=== PATIENT | male | born 1945 | race Caucasian/White ===

== ENCOUNTER 2016-12-03 11:43 | Emergency (ER) | payer MEDICARE, OTHER ==
[2015-11-19 19:10] VITALS: BMI 26.6
[~2016-12-03 11:43] MED LIST: ALEVE220 MG PO; BAYER CHEWABLE81 MG PO; ELIQUIS2.5 MG PO; FLOMAX0.4 MG PO; HYDROCODONE-APA1 TAB PO; PROSCAR5 MG PO; XOPENEX HFA15 GM INH
[2016-12-03 13:47] LABS: BASOPHILS 0.3 % (0-2); EOSINOPHILS 0.5 % (0-7); HEMATOCRIT 44.9 % (42.0-54.0); HEMOGLOBIN 15.8 g/dL (13.5-17.5); IMMATURE GRANULOCYTES 0.4 % (0-5); LYMPHOCYTES 21.6 % (15-50); MCH 34.2 pg (26.0-34.0); MCHC 35.2 g/dL (31.0-37.0); MCV 97.2 fL (80.0-100.0); MEAN PLATELET VOLUME 8.4 fL (7.4-10.4); NEUTROPHILS 70.2 % (40-80); PLATELET COUNT 279 10x3/uL (130-400); RBC 4.62 10x6/uL (4.20-6.10); RDW 12.1 % (11.5-14.5)
== END 2016-12-03 14:15 | disposition home or self-care (01) ==
LOC: D.ER 11:43
PROVIDERS: Emergency Medicine
DX: S01.01XA Laceration without foreign body of scalp, initial encounter (principal); W01.0XXA Fall on same level from slipping, tripping and stumbling without subsequent striking against object, initial encounter; Y93.89 Activity, other specified; Y92.89 Other specified places as the place of occurrence of the external cause

== ENCOUNTER 2017-06-25 22:07 | Inpatient (IN) | payer MEDICARE, OTHER ==
[~2017-06-25] VITALS: Ht 175.3 cm; Wt 81.6 kg
--- NOTE | ~2017-06-25 | OP ---
PATIENT NAME: ALEJANDRA OILVO MEDICAL RECORD: [id number] :45 LOCATION:[id number] ADMISSION DATE:06/26/17 SURGEON: EMEKA RAMIREZ DO DATE OF OPERATION: 06/26/2017 PROCEDURE PERFORMED: Right knee irrigation and debridement with polyethylene exchange. PREOPERATIVE DIAGNOSIS: Acute right total knee infection. POSTOPERATIVE DIAGNOSIS: Acute right total knee infection. INDICATIONS: Mr. Olivo is a 71-year-old male who presented to the ER yesterday after having redness in his right leg for the last 2 days. He said it became acutely swollen and tender especially his knee. Then, ER had aspirated it and joy purulence was aspirated out of his knee. He had a total knee done almost 2 years ago and initially had some complications. He fell postop day 1 and his knee opened up and then it was washed out and closed again, but since then he said he had not had any problems whatsoever. Knowing this and having a long discussion with him and his family and he is an alcoholic and drinks all the time, the treatment options were weighed whether to remove all the implants and put cement spacers in or try to do one surgery due to the acuteness of the infection, to wash out, do poly exchange and very thorough debridement. After discussing this and weighing the options, I told him if any of the implants were loose, we would go ahead and do the cement spacers and he agreed to that, but if they were not loose, we will just do a thorough debridement and I&D and polyethylene exchange and he agreed to that. We went into the OR with that plan and having him consented for such. I discussed with the patient that he may need further surgery due to not complete eradication of the infection, which would include another I&D and removal of implants and cement spacers. Also, it was explained to him that due to this infection, it may lead to an amputation. He was understanding of that and knowing that he consented to the procedure. SURGEON: Emeka Ramirez DO DESCRIPTION OF PROCEDURE: The patient was taken to the operative suite, laid in the supine position, given general anesthetic. Tourniquet was not inflated initially. After the patient was laid in the supine position, the right lower extremity was prepped and draped in sterile fashion. He was not given antibiotics due to the fact he is on vancomycin and Zosyn on the floor. Timeout was performed and everyone was in agreement with the correct procedure, site, and patient. The patient had a previous incision that went medially around the knee, medial to the midline and this incision was traced out and the Ioban was placed around the knee at that time. An incision began after the timeout had been performed with a #10 blade through the old incision and down to the capsule. The capsule had been incised in the same spot under the skin and went through the VMO and then down to the capsule from the medial side of the patella. As soon as the capsule was breached, joy purulence came pouring out of the knee. Cultures were taken at that time and the knee was opened up. The polyethylene was then taken out and the tibia and femur were tested and were not seem to be loose at all. Then, we began a thorough debridement with a curette, rongeur, and 9 liters of normal saline were irrigated through the knee. The tourniquet had been inflated at this time due to some bleeding in the approach. After the thorough debridement and irrigation, a new E poly was put in, the same size, 10-mm [address] with the locking mechanism. We then put OPERATIVE REPORT [id number] ALEJANDRA OLIVO vancomycin powder around the inside of the capsule of the knee and Lucinda as well. The tourniquet was let down. Any bleeders were coagulated and then the capsule and the VMO was closed with #1 Vicryl in a [id number] fashion and the skin was closed with 2-0 Vicryl in an inverted interrupted fashion. Then, ZipLine was placed on the knee. A drain had been placed on the knee also prior to closing the capsule, a Hemovac drain. Once the knee was closed, Adaptic, 4 x 4s, ABD, Webril, and Abdias wrap were placed on the knee. I did not put a JEANNA hose due to the cellulitis distal to the knee and a knee immobilizer was placed on the patient. He was awakened and taken to recovery in stable condition. Estimated blood loss was 150 mL. COMPLICATIONS: None. TRANSINT:[id number] Voice Confirmation ID: [id number] DOCUMENT ID: [id number] EMEKA RAMIREZ DO at 1846 CC: [id number] DICTATION DATE: 06/26/17 1430 HRIS COORDINATOR: 06/26/17 1541 ADM IN [place] [id number] [place] [id number]
[2017-06-25 23:48] LABS: BASOPHILS 0.1 % (0-2); EOSINOPHILS 0 % (0-7); HEMATOCRIT 45.8 % (42.0-54.0); HEMOGLOBIN 15.8 g/dL (13.5-17.5); IMMATURE GRANULOCYTES 0.6 % (0-5); LYMPHOCYTES 8.5 % (15-50); MCH 35.3 pg (26.0-34.0); MCHC 34.5 g/dL (31.0-37.0); MCV 102.5 fL (80.0-100.0); MEAN PLATELET VOLUME 9.8 fL (7.4-10.4); MONOCYTES 8.6 % (2-11); NEUTROPHILS 82.2 % (40-80); PLATELET COUNT 261 10x3/uL (130-400); RBC 4.47 10x6/uL (4.20-6.10); RDW 12.7 % (11.5-14.5); WBC 16.1 10x3/uL (4.8-10.8)
[2017-06-26] VITALS (11 sets, daily range): BP systolic 113–182; BP diastolic 63–91; BMI 26.6
[2017-06-26 00:11] LABS: PROTEIN - BODY FLUID 5.3 G/DL
[2017-06-26 00:13] LABS: BILIRUBIN - TOTAL 1.7 mg/dL (0.2-1.3); CALCIUM 10.4 mg/dL (8.5-10.1); CARBON DIOXIDE 27.7 mmol/L (21.0-32.0); CREATININE - SERUM 1.2 mg/dL (0.6-1.3); POTASSIUM - SERUM 4.7 mmol/L (3.5-5.1); PROTEIN - SERUM 7.8 g/dL (6.4-8.2)
[2017-06-26 00:14] LABS: ALBUMIN 3.2 g/dL (3.4-5.0)
[2017-06-26 00:38] LABS: NEUT - BF 90 %
[2017-06-26 00:39] LABS: C-REACTIVE PROTEIN 116.7 mg/dL (0.0-0.9)
[2017-06-26 00:39] LABS: MACROPHAGES BF 4 %
[2017-06-26 01:00] LABS: ERYTHROCYTE SEDIMENTATION RATE 72 mm/hr (0-20)
[2017-06-27 01:15] VITALS: BP 122/68
[2017-06-27 04:57] LABS: HEMATOCRIT 37.8 % (42.0-54.0); HEMOGLOBIN 12.7 g/dL (13.5-17.5); MCH 34.5 pg (26.0-34.0); MCHC 33.6 g/dL (31.0-37.0); MCV 102.7 fL (80.0-100.0); MEAN PLATELET VOLUME 9.3 fL (7.4-10.4); RBC 3.68 10x6/uL (4.20-6.10); RDW 12.8 % (11.5-14.5)
[2017-06-27 05:03] LABS: WBC 8.4 10x3/uL (4.8-10.8)
[2017-06-27 05:05] VITALS: BP 121/62
[2017-06-27 07:57] VITALS: BP 120/70
[2017-06-27 12:34] VITALS: BP 136/76
[2017-06-27 15:45] VITALS: BP 148/74
[2017-06-27 22:26] VITALS: BP 151/86
[2017-06-28 04:19] LABS: BASOPHILS 0 % (0-2); EOSINOPHILS 0.1 % (0-7); HEMATOCRIT 35.4 % (42.0-54.0); IMMATURE GRANULOCYTES 0.6 % (0-5); LYMPHOCYTES 11.1 % (15-50); MCH 34.1 pg (26.0-34.0); MCHC 33.9 g/dL (31.0-37.0); MCV 100.6 fL (80.0-100.0); MEAN PLATELET VOLUME 9.3 fL (7.4-10.4); MONOCYTES 11.8 % (2-11); NEUTROPHILS 76.4 % (40-80); PLATELET COUNT 238 10x3/uL (130-400); RBC 3.52 10x6/uL (4.20-6.10); RDW 12.4 % (11.5-14.5); WBC 8.6 10x3/uL (4.8-10.8)
[2017-06-28 08:45] VITALS: BP 133/65; BP 139/79
[2017-06-28 12:31] VITALS: BP 134/76
[2017-06-28 13:19] VITALS: Ht 175.3 cm; Wt 81.6 kg
[2017-06-28 16:47] VITALS: BP 131/67
[2017-06-28 22:21] VITALS: BP 133/72
[2017-06-29 00:56] VITALS: BP 123/78
[2017-06-29 05:11] LABS: CALC OSMOLALITY 273 mosm/kg (275-300); CALCIUM 7.5 mg/dL (8.5-10.1); CARBON DIOXIDE 27.3 mmol/L (21.0-32.0); CHLORIDE - SERUM 102 mmol/L (98-107); CREATININE - SERUM 0.8 mg/dL (0.6-1.3); GLUCOSE 132 mg/dL (74-106); SODIUM 136 mmol/L (136-145); UREA NITROGEN 12 mg/dL (7-18); eGFR NON AFRICAN AMERICAN > 90 mL/min (90-120)
[2017-06-29 05:20] VITALS: BP 146/80
[2017-06-29 05:43] LABS: POTASSIUM - SERUM 2.9 mmol/L (3.5-5.1)
[2017-06-29 09:02] VITALS: BP 116/61
[2017-06-29] MEDS ORDERED: ROCEPHIN 2 GM/D52 G1 IV (11:40)
[2017-06-29] MEDS ORDERED: ELIQUIS2.5 MG PO ×2 (11:41→11:49)
[2017-06-29] MEDS ORDERED: K-DUR20 MEQ PO (11:42)
[2017-06-29] MEDS ORDERED: FLORAJEN3 CAPS460 MG PO (11:43)
[2017-06-29] MEDS ORDERED: SENOKOT-S TABLE1 TAB PO (11:43)
[2017-06-29] MEDS ORDERED: OXYCODONE HCL5 MG PO (11:45)
[2017-06-29 12:45] VITALS: BP 154/87
[2017-06-29 17:19] VITALS: BP 158/71
[2017-06-30 15:25] LABS: AEROBE ID Preliminary report (())
== END 2017-06-29 17:49 | DRG 486 ==
LOC: D.ER 22:07 → D.MS 06-26 00:40
PROVIDERS: Emergency Medicine; Orthopaedic Surgery; Physician Assistant
PROC: 0SPC09Z Removal of Liner from Right Knee Joint, Open Approach (ICD-10-PCS; principal; 2017-06-26 11:00)
PROC: 0SUV09Z Supplement Right Knee Joint, Tibial Surface with Liner, Open Approach (ICD-10-PCS; 2017-06-26 11:00)
PROC: 02HV33Z Insertion of Infusion Device into Superior Vena Cava, Percutaneous Approach (ICD-10-PCS; 2017-06-29)
PROC: B548ZZA Ultrasonography of Superior Vena Cava, Guidance (ICD-10-PCS; 2017-06-29)
DX: T84.53XA Infection and inflammatory reaction due to internal right knee prosthesis, initial encounter (principal); L03.115 Cellulitis of right lower limb; F17.203 Nicotine dependence unspecified, with withdrawal; J44.9 Chronic obstructive pulmonary disease, unspecified; N40.0 Benign prostatic hyperplasia without lower urinary tract symptoms; F10.20 Alcohol dependence, uncomplicated

== ENCOUNTER → 2017-08-10 09:53 | Outpatient (CLI) | payer MEDICARE, OTHER ==
[2017-06-28 13:19] VITALS: BMI 26.5
[~2017-08-10 09:53] MED LIST changes: +FLORAJEN3 CAPS460 MG PO; +K-DUR20 MEQ PO; +OXYCODONE HCL5 MG PO; +ROCEPHIN 2 GM/D52 G1 IV; +SENOKOT-S TABLE1 TAB PO
[2017-08-10 15:51] LABS: ERYTHROCYTE SEDIMENTATION RATE 25 mm/hr (0-20)
== END | disposition home or self-care (01) ==
LOC: D.LABREF 09:53
PROVIDERS: Student in an Organized Health Care Education/Training Program
DX: T84.50XA Infection and inflammatory reaction due to unspecified internal joint prosthesis, initial encounter (principal)

== ENCOUNTER → 2017-08-24 12:44 | Outpatient (CLI) | payer MEDICARE, OTHER ==
[2017-06-28 13:19] VITALS: BMI 26.5
[2017-08-24 20:34] LABS: BASOPHILS 0.2 % (0-2); EOSINOPHILS 0.3 % (0-7); HEMATOCRIT 46.7 % (42.0-54.0); HEMOGLOBIN 15.1 g/dL (13.5-17.5); IMMATURE GRANULOCYTES 0.9 % (0-5); LYMPHOCYTES 25.5 % (15-50); MCH 32.3 pg (26.0-34.0); MCHC 32.3 g/dL (31.0-37.0); MEAN PLATELET VOLUME 8.7 fL (7.4-10.4); MONOCYTES 9.8 % (2-11); NEUTROPHILS 63.3 % (40-80); RBC 4.67 10x6/uL (4.20-6.10); RDW 16.9 % (11.5-14.5); WBC 9.8 10x3/uL (4.8-10.8)
[2017-08-24 20:47] LABS: PLATELET COUNT 326 10x3/uL (130-400)
[2017-08-24 20:50] LABS: ALBUMIN 3.5 g/dL (3.4-5.0); ALKALINE PHOSPHATASE 87 U/L (46-116); ALT (SGPT) 20 U/L (10-68); BILIRUBIN - DIRECT 0.13 mg/dL (0.00-0.30); BILIRUBIN - INDIRECT 0.28 mg/dL (0.00-1.00); BILIRUBIN - TOTAL 0.41 mg/dL (0.2-1.3); C-REACTIVE PROTEIN < 0.2 mg/dL (0.0-0.9); PROTEIN - SERUM 6.8 g/dL (6.4-8.2)
[2017-08-24 21:18] LABS: ERYTHROCYTE SEDIMENTATION RATE 22 mm/hr (0-20)
== END | disposition home or self-care (01) ==
LOC: D.LABREF 12:44
PROVIDERS: Student in an Organized Health Care Education/Training Program
DX: T84.53XD Infection and inflammatory reaction due to internal right knee prosthesis, subsequent encounter (principal); Z51.81 Encounter for therapeutic drug level monitoring; Z79.2 Long term (current) use of antibiotics

== ENCOUNTER → 2017-08-26 10:02 | Outpatient (CLI) | payer MEDICARE, OTHER ==
[2017-06-28 13:19] VITALS: BMI 26.5
== END | disposition home or self-care (01) ==
LOC: D.LAB 10:02
DX: R19.5 Other fecal abnormalities (principal)

== ENCOUNTER → 2017-09-28 09:55 | Outpatient (CLI) | payer MEDICARE, OTHER ==
[2017-06-28 13:19] VITALS: BMI 26.5
[2017-09-28 12:37] LABS: BASOPHILS 0.4 % (0-2); EOSINOPHILS 0.8 % (0-7); HEMATOCRIT 50.4 % (42.0-54.0); HEMOGLOBIN 17.5 g/dL (13.5-17.5); IMMATURE GRANULOCYTES 0.4 % (0-5); LYMPHOCYTES 37.8 % (15-50); MCH 34.7 pg (26.0-34.0); MCHC 34.7 g/dL (31.0-37.0); MCV 99.8 fL (80.0-100.0); MEAN PLATELET VOLUME 9.3 fL (7.4-10.4); NEUTROPHILS 51.6 % (40-80); PLATELET COUNT 322 10x3/uL (130-400); RBC 5.05 10x6/uL (4.20-6.10); WBC 7.7 10x3/uL (4.8-10.8)
[2017-09-28 13:55] LABS: ERYTHROCYTE SEDIMENTATION RATE 1 mm/hr (0-20)
== END | disposition home or self-care (01) ==
LOC: D.LABREF 09:55
PROVIDERS: Nurse Practitioner Family
DX: T84.53XD Infection and inflammatory reaction due to internal right knee prosthesis, subsequent encounter (principal)